=== PATIENT | female | born 1995 | race Caucasian/White ===

== ENCOUNTER 2022-08-30 16:07 | Observation (INO) | payer OTHER, SELFPAY ==
[2022-08-30] VITALS (27 sets, daily range): BP systolic 105–131; BP diastolic 55–84; PULSE 61–88; RESP 15–17; TEMP 36.6–36.7; BMI 30.4
[2022-08-30] MEDS: acetaminophen 325 mg Tablet 650 MG PO (19:28)
[2022-08-30] MEDS: dexamethasone 10 mg/mL INJ 6 MG IM (19:35)
--- NOTE | 2022-08-30 22:36 | PM.OBGYHP ---
Providers/Chief Complaint Admitting Physician: Nash Galvin MD Primary RECORDS ANALYSIS MANAGER: Dr. Banegas in [place] Chief Complaint: abd pain HPI RECORDS ANALYSIS MANAGER History of Present Illness Carmenza Sawyer is a 26 year old 3 para 0202 female at 35 weeks and 6 days sent into the OB department in active labor. 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 She also been having contractions throughout the day, but they were not severe enough for her to stop working. After her episode of lightheadedness, she was brought to the OB floor for further evaluation. On the OB floor, she was found to have contractions consistently every 2 to 5 minutes. Her initial exam was 2/50/-3. After several hours she was noted to change to 2/70/-3. She continued to have consistent contractions less than every 5 minutes. Present Details : 3 Para: 2 Review of Systems General: Reports: 10 or more systems reviewed and unremarkable except in HPI and below Const: Reports: fatigue; Denies: fever(s) Eyes: Denies: change in vision Card: Denies: chest pain Musc: Reports: back pain [place]ar/Lymph: Denies: easy bruising PFSH RECORDS ANALYSIS MANAGER PFSH: Surgical History H/O gastric sleeve Social History (Updated 08/30/22 @ 22:43 by Nash Galvin MD) Smoking and tobacco status: never smoked Alcohol intake: never Substance/Drug Use: never Vitals/I&O/Wt Last Vital Signs Temp 98.0 F 08/30/22 16:42 Pulse 71 08/30/22 22:12 Resp 16 08/30/22 19:06 BP 119/82 08/30/22 22:12 Weight last 48 hrs Weight 183 lb Physical Exam Const: COMMON NORMALS: patient oriented x3 and alert HENMT: COMMON NORMALS: moist oral mucous membranes HEAD & SCALP: normal to inspection Chest: COMMONS NORMALS: normal inspection of the chest Resp: COMMON NORMALS: clear to auscultation bilaterally AUSCULTATION: clear to auscultation bilaterally Cardio: COMMON NORMALS: regular rate and regular rhythm RATE: regular rate RHYTHM: regular rhythm GI: INSPECTION: Yes normal to inspection and Yes other (Gravid) Extremity: COMMON NORMALS: normal to inspection GENERAL: Yes edema (Trace) Neuro: COMMON NORMALS: patient oriented x3, moves all extremities and no sensory deficits noted SENSORIUM/ORIENTATION: Yes alert CRANIAL NERVES: Yes CN normal except as noted Psych: COMMON NORMALS: mental status grossly normal Skin: COMMON NORMALS: no rashes or lesions noted GENERAL SKIN EXAM: no rashes or lesions noted A&P Assessment and plan (1) 35 weeks gestation of : Because of her gestational age, I have given her dexamethasone. I am also treating her empirically for group B strep status given the gestational age. I am also more cautious because she was sent home with her last at about this gestational age and came back a few hours later at 9 cm dilated. There is also in winter weather advisory with temperatures with windshield being -20 degrees as well as icy roads. As such, I am going to be more careful prior to discharging the patient. (2) Pre-syncope: The patient symptoms have resolved completely. I suspect that her symptoms are largely secondary to her . There have been no signs of vital instability and she has been acting completely normal otherwise. Attestations Medical Necessity Statement*: At this point it is not clear if the patient is in early active labor and may be discharged home or if she is going to make significant cervical change in the short run and will need to be kept. Coding Level of Care Code Acute Elementary Education Teacher for Chg Fwd Diagnoses 35 weeks gestation of Z3A.35 Pre-syncope R55
[2022-08-30] MEDS: ampicillin 2,000 MG in sodium chloride 0.9% (plus) 50 ML 100 MG IV (23:07)
[2022-08-30] MEDS: dextrose 5%-lactated ringers 1,000 ML 125 ML IV (23:07)
[2022-08-30 23:09] LABS: Basophils % 0.1 %; Eosinophils % 0.1 %; Hematocrit 32.9 % (37.0-47.0); Hemoglobin 10.3 g/dL (11.5-15.3); Lymphocytes # 1.5 10^3/uL (0.8-4.8); Lymphocytes % 10.2 %; Mean Corpuscular HGB Conc 31.3 g/dL (30.0-36.0); Mean Corpuscular Hemoglobin 24.7 pg (28.0-34.0); Mean Corpuscular Volume 78.9 fl (81-99); Mean Platelet Volume 11.1 fL (7.4-10.4); Monocytes # 0.3 10^3/uL (0.2-0.9); Neutrophils # 12.64 10^3/uL (1.8-7.7); Nucleated Red Blood Cells % 0 %; Platelet Count 261 10^3/cmm (130-400); Red Blood Count 4.17 10^6/uL (4.1-5.3); Red Cell Distribution Width 12.5 % (12.1-15.1); White Blood Count 14.5 10^3/uL (4.0-10.0)
[2022-08-31] VITALS (28 sets, daily range): BP systolic 112–125; BP diastolic 64–81; PULSE 60–92; RESP 16; TEMP 36.4; O2SAT 97–100
[2022-08-31] MEDS: fentaNYL 50 mcg/mL INJ 2mL IVP (00:39)
[2022-08-31] MEDS: ampicillin 1,000 MG in sodium chloride 0.9% (plus) 50 ML 100 MG IV ×2 (03:06→07:05)
[2022-08-31] MEDS: acetaminophen 325 mg Tablet 650 MG PO (05:54)
[2022-08-31] MEDS: dextrose 5%-lactated ringers 1,000 ML 125 ML IV (07:05)
[2022-08-31] MEDS: dexamethasone 10 mg/mL INJ 6 MG IM (07:41)
== END 2022-08-31 08:30 | disposition home or self-care (01) ==
PROVIDERS: Admitting Provider Family Medicine; Visit Provider Family Medicine
DX: O47.03 False labor before 37 completed weeks of gestation, third trimester (principal); Z3A.35 35 weeks gestation of pregnancy
CPT/HCPCS: 12345; 36415; 59025; 85025; 96372; 96374; 99211; G0378; G0379; J0290; J1100; J3010; J7121